=== PATIENT | female | born 1985 | race Caucasian/White ===

== ENCOUNTER 2017-06-04 11:21 | Emergency (ER) | payer SELFPAY ==
[~2017-06-04] VITALS: Ht 170.2 cm; Wt 59.0 kg
[2017-06-04 14:20] VITALS: BP 117/80
== END 2017-06-04 14:43 | disposition home or self-care (01) ==
LOC: EDBD 11:21 → EDUNIT# 11:21 → ER 11:21
DX: K08.89 Other specified disorders of teeth and supporting structures (principal); E07.9 Disorder of thyroid, unspecified; Z88.6 Allergy status to analgesic agent

== ENCOUNTER 2023-08-02 07:13 | Emergency (ER) | payer MEDICAID, OTHER ==
[~2023-08-02] VITALS: Ht 167.6 cm; Wt 60.6 kg
[2023-08-02 07:44] VITALS: BP 127/71; PULSE 95; RESP 16; TEMP 98.3; O2SAT 98
[2023-08-02] MEDS ORDERED: BACDST PO (07:49)
== END 2023-08-02 07:59 | disposition home or self-care (01) ==
LOC: ER 07:13
DX: R23.8 Other skin changes (principal); E03.9 Hypothyroidism, unspecified; Z79.899 Other long term (current) drug therapy; Z88.5 Allergy status to narcotic agent